=== PATIENT | female | born 1970 | race Hispanic/Latino ===

== ENCOUNTER 2016-07-15 09:55 | Emergency (ER) | payer OTHER ==
[~2016-07-15] VITALS: Ht 167.6 cm; Wt 83.5 kg
[~2016-07-15 09:55] MED LIST: AUGMENTIN 875 M1 TAB PO; CIPRODEX 0.3%-7.5 ML OT
[2016-07-15 10:38] LABS: ABSOLUTE BASOPHIL COUNT 0 /CUMM (0.0-0.2); ABSOLUTE EOSINOPHIL COUNT 0.2 /CUMM (0.0-0.7); ABSOLUTE GRANULOCYTE CT 6.6 /CUMM (1.4-6.5); ABSOLUTE LYMPH COUNT 2.4 /CUMM (1.2-3.4); ABSOLUTE MONOCYTE COUNT 0.6 /CUMM (0.10-0.60); BASOPHIL % 0.4 % (0.0-2.0); EOSINOPHIL % 2.3 % (0-5); GRANULOCYTE % 66.9 % (42.2-75.2); HEMATOCRIT 40.8 % (37-47); MEAN CORPUSCULAR HGB 28.9 PG (27.0-31.0); MEAN CORPUSCULAR HGB CONC 34.3 G/DL (33.0-37.0); MEAN CORPUSCULAR VOLUME 84.3 FL (81.0-99.0); MEAN PLATELET VOLUME 8.3 FL (7.4-10.4); PLATELET COUNT 312 /CUMM (130-400); RBC DISTRIBUTION WIDTH 12.8 % (11.5-14.5); RED BLOOD CELL CT 4.83 /CUMM (4.20-5.40); WHITE BLOOD CELL COUNT 9.9 /CUMM (4.8-10.8)
--- NOTE | 2016-07-15 10:40 | ED CARDIAC/CP/PALPITATIONS ---
History of Present Illness General Chief Complaint: Chest Pain Stated Complaint: CP Source: patient Exam Limitations: no limitations Vital Signs & Intake/Output Vital Signs & Intake/Output Vital Signs Date Time Temp Pulse Resp B/P Pulse O2 O2 Flow FiO2 Ox Delivery Rate 07/15 1212 98.6 89 17 133/85 99 Room Air 07/15 1002 97.2 84 20 153/106 100 Room Air Allergies Coded Allergies: NO KNOWN ALLERGIES (07/15/16) Reconcile Medications Omeprazole 40 MG CAPSULE. 1 CAP PO DAILY acid reflux Triage Note: PT TO ED C/O CHEST DISCOMFORT SINCE YESTERDAY. STATES IT STARTED AT WORK WHILE SITTING DOWN. WORSE OVER NIGHT. DENIES N/V/D. STATES "IT'S ANNOYING". PAIN IS IN CENTER OF CHEST, DOES NOT RADIATE, WORSE WITH TAKING A DEEP BREATH. DENIES ANY COUGH. EKG IN PROGRESS. Triage Nurses Notes Reviewed? yes Onset: Abrupt Duration: day(s): (1), constant, continues in ED Timing: recent history Quality/Severity: moderate, severe Location: central Activities at Onset: none : No Patient currently breastfeeds: No HPI: 45-year-old female comes into the emergency room with complaints of central chest pain has been going on for the past day. Some associated shortness of breath. Worse with deep breath or leaning forward when she twists or turns. Denies any fever chills. Denies any vomiting. Nothing seems to make the symptoms better. Patient tried taking a Zantac last night with no relief becauseShe thought it might be acid reflux. Patient describes it as a dull pain. (ELI ROSENBAUM) Past History Travel History Traveled to [place] past 21 day No Medical History Any Pertinent Medical History? none History of CDIFF: No Surgical History Surgical History: cholecystectomy Psychosocial History What is your primary language Icelandic Tobacco Use: Never used ETOH Use: denies use Illicit Drug Use: denies illicit drug use Family History Hx Contributory? No (ELI ROSENBAUM) Review of Systems Review of Systems Constitutional: Reports: no symptoms. EENTM: Reports: no symptoms. Respiratory: Reports: no symptoms. Cardiovascular: Reports: see HPI. GI: Reports: no symptoms. Genitourinary: Reports: no symptoms. Musculoskeletal: Reports: no symptoms. Skin: Reports: no symptoms. Neurological/Psychological: Reports: no symptoms. Hematologic/Endocrine: Reports: no symptoms. Immunologic/Allergic: Reports: no symptoms. All Other Systems: Reviewed and Negative (ELI ROSENBAUM) Physical Exam Physical Exam General Appearance: well developed/nourished, no apparent distress, alert Head: atraumatic, normal appearance Eyes: Bilateral: normal appearance, EOMI. Ears, Nose, Throat: normal ENT inspection, hearing grossly normal Neck: normal inspection Respiratory: normal breath sounds, no respiratory distress Cardiovascular: regular rate/rhythm Gastrointestinal: soft Back: normal inspection Extremities: normal inspection, normal range of motion Neurologic/Psych: awake, alert, oriented x 3, normal gait, normal mood/affect Skin: intact, normal color Core Measures ACS in differential dx? Yes Severe Sepsis Present: No Septic Shock Present: No (ELI ROSENBAUM) Progress Differential Diagnosis: AMI, aortic dissection, cholecystitis, CHF/pulm edema, costochondritis, hyperkalemia, hyperventilation, intracranial hemorrhage, musculoskeletal pain, myocarditis, pancreatitis, pericarditis, pneumonia, pneumothorax, pulmonary embolism, PUD/GERD, PVCs/PACs, respiratory failure, sepsis, unstable angina, V-fib/V-Tach, WPW syndrome Plan of Care: Orders Procedure Date/time Status Add-on Test (ER Only) 07/15 1102 Active Telemetry/Ethnoarchaeology Professor 07/15 1045 Active D-DIMER 07/15 1022 Complete TROPONIN LEVEL 07/15 1006 Complete COMPREHENSIVE METABOLIC PANEL 07/15 1006 Complete CBC WITHOUT DIFFERENTIAL 07/15 1006 Complete EKG 07/15 0956 Active Laboratory Tests 07/15/16 1022: Anion Gap 8, Estimated GFR > 60, BUN/Creatinine Ratio 16.7, Glucose 85, Calcium 9.7, Total Bilirubin 1.0, AST 13 L, ALT 32, Alkaline Phosphatase 66, Troponin I < 0.01, Total Protein 7.2, Albumin 4.0, Globulin 3.2, Albumin/Globulin Ratio 1.3 , D-Dimer < 200, CBC w Diff NO MAN DIFF REQ, RBC 4.83, MCV 84.3, MCH 28.9, RDW 12.8, MPV 8.3, Gran % 66.9, Lymphocytes % 24.1, Monocytes % 6.3, Eosinophils % 2.3, Basophils % 0.4, Absolute Granulocytes 6.6 H, Absolute Lymphocytes 2.4, Absolute Monocytes 0.6, Absolute Eosinophils 0.2, Absolute Basophils 0, PUBS MCHC 34.3 Diagnostic Imaging: Viewed by Me: Radiology Read. Discussed w/RAD: Radiology Read. Radiology Impression: SERVICE DATE: 07/15/16 EXAM TYPE: RAD - XRY-CHEST XRAY, PA AND LATERAL EXAMINATION: XR CHEST CLINICAL INFORMATION: Chest pain. COMPARISON: None TECHNIQUE: 2 views of the chest were obtained. FINDINGS: Cardiac and mediastinal silhouette is within normal limits. Lungs are symmetrically expanded. No evidence of pulmonary edema, effusion, focal consolidation or pneumothorax. No acute osseous abnormality. IMPRESSION: No radiographic evidence of acute process. Initial ED EKG: normal intervals, normal p-waves, normal QRS complex, normal sinus rhythm, rate (87) (RAMON HARRISON,ELI) Departure Departure Disposition: HOME OR SELF CARE Condition: Stable Clinical Impression Primary Impression: Atypical chest pain Referrals: JUAN SOLOMON,CHE Varela PATIENT HAS NO PRIMARY CARE DR (PCP/Family) NIKITA SOLOMON,GURINDER Danielson Additional Instructions: Take omeprazole as prescribed. Follow-up with salvager helper as well as fuse cutter. You may require further evaluation for cardiac workup and possibly an endoscopy if symptoms persist. Please return to the emergency room if any concerns worsening symptoms. Please go over all results of today's visit with your primary care doctor. Contact your primary care doctor to let them know you were here in the emergency room. There may be nonspecific findings which may not be related to your visit today here in the emergency room but may require further evaluation and chronic monitoring by your primary care doctor. If you had a laceration today the chance of foreign body always remains. You should follow-up with your primary care doctor for recheck in 3-5 days for a wound check. If you had an x-ray done there is a chance that a fracture could have been missed on initial read and you should follow-up with your primary care doctor for repeat x-rays if symptoms persist. If your blood pressure was elevated here in the emergency room please have rechecked by her primary care doctor within the next 48 hours by your primary care doctor. If you were prescribed a narcotic here in the emergency room or any type of controlled substances you're not allowed to drive while taking this medication or operate any type of heavy machinery. Narcotics can make you feel lightheaded dizziness nausea and can cause constipation. You may need to sheepskin pickler a stool softener. Thank you for choosing [facility] emergency room. Please return to the emergency room immediately if you have any other concerns worsening of symptoms. Departure Forms: Customer Survey General Discharge Information Prescriptions: Current Visit Scripts Omeprazole 1 CAP PO DAILY #30 CAP Comments 07/15/2016 12:07:41 PM Patient's pain has been continuous and told since yesterday afternoon. She has a normal EKG and a normal troponin. If chest pain has been continuous this long if this were cardiac event troponin would have been positive. No suspicion for any type of acute cardiac process at the moment. Patient's symptoms improved after a GI cocktail here in the emergency room. This could potentially point to something more esophageal/gastritis/peptic ulcer disease. Patient started on a proton pump inhibitor and refer her to GI as well as cardiology. Case was discussed with Dr. art and he agrees with plan of care and does not feel that second EKG and second troponin is necessary at this time. (ELI ROSENBAUM) PA/ASSAYER Co-Sign Statement Statement: ED Attending supervision documentation- x I saw and evaluated the patient. I have also reviewed all the pertinent lab results and diagnostic results. I agree with the findings and the plan of care as documented in the PA's/ASSAYER's documentation. [] I have reviewed the ED Record and agree with the PA's/ASSAYER's documentation. [] Additions or exceptions (if any) to the PAs/ASSAYER's note and plan are summarized below: [] (NENA ART MD) Critical Care Note Critical Care Note Critical Care Time: non-applicable (ELI ROSENBAUM)
--- NOTE | 2016-07-15 11:40 | RADIOLOGY REPORT ---
EXAMINATION: XR CHEST CLINICAL INFORMATION: Chest pain. COMPARISON: None TECHNIQUE: 2 views of the chest were obtained. FINDINGS: Cardiac and mediastinal silhouette is within normal limits. Lungs are symmetrically expanded. No evidence of pulmonary edema, effusion, focal consolidation or pneumothorax. No acute osseous abnormality. IMPRESSION: No radiographic evidence of acute process.
[2016-07-15] MEDS ORDERED: OMEPRAZOLE40 M1 PO (12:06)
[2016-07-15 12:12] VITALS: BP 133/85
== END 2016-07-15 12:15 ==
LOC: ERH 09:55
PROVIDERS: Physician Assistant Medical
DX: R07.89 Other chest pain (principal)
CPT/HCPCS: 93005; 93010